=== PATIENT | female | born 1960 | race Hispanic/Latino ===

== ENCOUNTER 2018-02-10 23:17 | Emergency (ER) | payer BC, OTHER ==
[2018-02-10 23:39] VITALS: TEMP 97.5
[2018-02-10] MEDS ORDERED: ORPHENADRINE CITRATE 30 MG/ML AMP IV ONE (23:47)
[2018-02-10] MEDS ORDERED: SODIUM CHLORIDE 0.9% (FLUSH) 10 ML SYG IV PRN (23:48)
--- NOTE | 2018-02-11 00:24 | RAD ---
EXAM DESCRIPTION: Chest,1 View CLINICAL HISTORY: 57 years Female chest pain COMPARISON: 10/20/2010 FINDINGS: The cardiomediastinal silhouette appears unremarkable. No consolidating infiltrates or pleural effusions. No pneumothorax. IMPRESSION: No acute abnormality is identified. Electronically signed by: Nicolasa Plata MD 02/11/2018 12:23 AM CDT
[2018-02-11] MEDS ORDERED: ORPHENADRINE CITRATE 30 MG/ML AMP IM PRN (00:28)
[2018-02-11] MEDS ORDERED: POTASSIUM CHLORIDE 20 MEQ TAB PO ONE (00:40)
[2018-02-11] MEDS ORDERED: SODIUM CHLORIDE 0.9% 1000ML 1,000 ML IVS ONE (00:40)
--- NOTE | 2018-02-11 00:45 | ED.PDOC ---
History of Present Illness - General Chief Complaint: Neck Injury/Pain Stated Complaint: left sided neck pain Time Seen by Provider: 02/10/18 23:47 Source: patient, RN notes reviewed, Vital Signs reviewed Exam Limitations: no limitations - History of Present Illness Timing/Duration: other - 2 pm today Severity: mild Improving Factors: nothing Worsening Factors: movement Associated Symptoms: nausea/vomiting, other - pt reports that the symptoms started after she was sent a picture of a snake which she has a phobia. location is poorly localized but mainly to the base of the neck anteriorly and the left bicept area, palpation makes the symptoms worse, some nausea but no worsening with exercise, deep breathing, no ripping or tearing quaily and the pain has not started to move or progress since it started. no associated numbness or weakness to the arm or lower extremity. pt has not had this in the past. Also pt complains of increased fatigue, has not been sleeping well at night and has had some anxiety concerning her husbands unemployment. no gi symptoms, no prior cardiac issues Allergies/Adverse Reactions: Allergies NO KNOWN ALLERGY Allergy (Unverified 08/13/13 22:27) Home Medications: Ambulatory Orders Cyclobenzaprine HCl [Flexeril] 10 mg PO Q8H PRN #20 tab 02/11/18 Ketorolac Tromethamine [Toradol Tabs] 10 mg PO Q6H PRN #20 tab 02/11/18 Review of Systems - Review of Systems Constitutional: States: no symptoms reported EENTM: States: no symptoms reported. Denies: blurred vision, double vision, ear pain, throat pain, throat swelling, mouth pain, mouth swelling Respiratory: Denies: short of breath, wheezing Cardiology: Denies: chest pain, edema, palpitations, syncope Gastrointestinal/Abdominal: Denies: abdominal pain, constipation, vomiting Musculoskeletal: States: back pain, muscle pain, neck pain Skin: Denies: change in color, dryness Neurological: States: anxiety. Denies: numbness, paresthesia, seizure, tingling , weakness Hematologic/Lymphatic: States: no symptoms reported Past Medical History (General) - Patient Medical History Hx Stroke: No Hx of COPD: No Hx Diabetes: No Hx Gastroesophageal Reflux: Yes Family Medical History - Family History Mother Family History: No Known Physical Exam - Physical Exam General Appearance: Alert, Anxious, No apparent distress Eye Exam: bilateral normal Ears, Nose, Throat: hearing grossly normal, normal ENT inspection, normal pharynx, other - no carotid bruise Neck: full range of motion, supple, normal inspection, other - tenderness to the left SCM and trapezius and deltoid Respiratory: lungs clear, normal breath sounds, no respiratory distress, other - anterior chest wall tenderness Cardiovascular/Chest: normal peripheral pulses, regular rate, rhythm, no edema, no gallop, no JVD, no murmur Gastrointestinal/Abdominal: non tender, soft Back Exam: normal inspection, no CVA tenderness, no vertebral tenderness Extremity: normal range of motion, non-tender, normal inspection, no pedal edema , no calf tenderness, normal capillary refill 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, no motor/sensory deficits, alert Skin Exam: normal color, warm/dry Lymphatic: no adenopathy Progress - Progress Progress: 02/11/18 00:50 02/10/18 23:48 CBC (AUTOMATED) W/AUTO DIFF Stat Sodium Chloride 0.9% (Flush) [Saline Flush Syringe] 3 ml IV PRN PRN 02/10/18 23:49 IV Care:Saline Lock per Protoc QSHIFT Telemetry ONCE EKG STAT Oxygen Delivery Assessment: QSHIFT Oxygen Stat Pulse Oximetry Assessment DAILY 02/11/18 00:28 Orphenadrine Citrate Inj [Norflex Inj] 60 mg IM Q12H PRN 02/11/18 00:40 Sodium Chloride 0.9% 1000ML [Ns 1000 ml] 1,000 ml IVS ONCE 02/11/18 00:48 URINALYSIS Stat 02/11/18 00:50 Ketorolac Tromethamine Inj [Toradol Inj] 30 mg IV ONCE ONE 02/11/18 09:00 Pulse Ox Daily 02/11/18 23:49 EKG STAT Laboratory Results WBC 4.7 K/mm3 (4.8-10.8) L 02/10/18 00:02 RBC 4.31 M/mm3 (4.20-5.40) 02/10/18 00:02 Hgb 12.7 gm/dL (12.0-16.0) 02/10/18 00:02 Hct 37.8 % (36.0-47.0) 02/10/18 00:02 MCV 87.7 fl (81.0-99.0) 02/10/18 00:02 MCH 29.5 pg (27.0-31.0) 02/10/18 00:02 MCHC 33.7 g/dL (33.0-37.0) 02/10/18 00: RDW 12.4 % (11.5-14.5) 02/10/18 00:02 Plt Count 286 K/mm3 (130-400) 02/10/18 00: MPV 7.9 fl (7.40-10.4) 02/10/18 00:02 Absolute Neuts (auto) 2.40 K/uL (1.8-6.8) 02/10/18 00:02 Absolute Lymphs (auto) 1.70 K/uL (1.0-3.4) 02/10/18 00:02 Absolute Monos (auto) 0.40 K/uL (0.2-0.8) 02/10/18 00: Absolute Eos (auto) 0.20 K/uL (0.0-0.4) 02/10/18 00: Absolute Basos (auto) 0.00 K/uL (0.0-0.1) 02/10/18 00:02 Neutrophils % 50.8 % (42.0-78.0) 02/10/18 00: Lymphocytes % 36.6 % (20.0-50.0) 02/10/18 00: Monocytes % 8.2 % (2.0-9.0) 02/10/18 00: Eosinophils % 3.5 % (1.0-5.0) 02/10/18 00: Basophils % 0.9 % (0.0-2.0) 02/10/18 00: PT 10.5 SECONDS (9.4-12.5) 02/10/18 00:02 INR 0.900 02/10/18 00:02 PTT (SP) 28.9 SECONDS (25.1-36.5) 02/10/18 00:02 Sodium 136 mmol/L (135-145) 02/10/18 00:02 Potassium 3.5 mmol/L (3.6-5.0) L 02/10/18 00:02 Chloride 105 mmol/L (101-111) 02/10/18 00:02 Carbon Dioxide 25 mmol/L (21-31) 02/10/18 00:02 Anion Gap 9.5 (12-18) L 02/10/18 00:02 BUN 19 mg/dL (7-18) H 02/10/18 00:02 Creatinine 0.92 mg/dL (0.6-1.3) 02/10/18 00:02 BUN/Creatinine Ratio 20.7 (10-20) H 02/10/18 00:02 Random Glucose 115 mg/dL (70-105) H 02/10/18 00:02 Serum Osmolality 275.1 mOsm/L (275-295) 02/10/18 00:02 Calcium 8.7 mg/dL (8.4-10.2) 02/10/18 00:02 Magnesium 1.7 mg/dL (1.8-2.5) L 02/10/18 00:02 Total Bilirubin 0.3 mg/dL (0.2-1.0) 02/11/18 00:02 Direct Bilirubin < 0.1 mg/dL (0-0.2) 02/11/18 00: Indirect Bilirubin 0.2 mg/dL (0.2-0.8) 02/11/18 00:02 AST 21 IU/L (10-42) 02/11/18 00:02 ALT 23 IU/L (10-60) 02/11/18 00:02 Alkaline Phosphatase 81 IU/L (42-121) 02/11/18 00:02 Creatine Kinase 71 IU/L (26-140) 02/10/18 00:02 CK-MB (CK-2) 1.1 ng/mL (0.0-4.4) 02/10/18 00: CK-MB (CK-2) % Not Reportable 02/10/18 00:02 Troponin I < 0.02 ng/mL (0.01-0.05) 02/10/18 00:02 Serum Total Protein 6.8 gm/dL (6.4-8.2) 02/11/18 00:02 Albumin 3.9 g/dl (3.2-5.5) 02/11/18 00:02 cxr negative EKG Sinus bradycardia with wandering baseline rate 54, pr 156, qrs 78, qtc 396 REPEAT ekg at 0:30 due to baseline showed sinus bradycardia rate 48, pr 156, qrs 80, qtc 405 no angina Pt feeling improved after medications, do not feel patient has atypical presentation for angina; unlikely dissection/ PE; will treat dehydration and hypokalemia and advise close f/u with pcp for further workup. Non toxic and stable currently Departure - Departure Clinical Impression: Cervicalgia, Dehydration, Myalgia, Hypokalemia Fatigue Qualifiers: Fatigue type: unspecified Qualified Code(s): R53.83 - Other fatigue Time of Disposition: 00:55 Disposition: Discharge to Home or Self Care Condition: Excellent Departure Forms: ED Discharge - Pt. Copy, Patient Portal Self Enrollment Instructions: DI for Cervical Muscle Strain, DI for Neck Pain Diet: resume usual diet Activity: increase activity as tolerated Referrals: Gerardo Dooley MD [Primary Care Provider] - 1-5 Days Prescriptions: Cyclobenzaprine HCl [Flexeril] 10 mg PO Q8H PRN #20 tab PRN Reason: Pain Ketorolac Tromethamine [Toradol Tabs] 10 mg PO Q6H PRN #20 tab PRN Reason: Pain Home Medications: Ambulatory Orders Cyclobenzaprine HCl [Flexeril] 10 mg PO Q8H PRN #20 tab 02/11/18 Ketorolac Tromethamine [Toradol Tabs] 10 mg PO Q6H PRN #20 tab 02/11/18
[2018-02-11] MEDS ORDERED: KETOROLAC TROMETHAMINE INJ 30 MG/ML VIAL IV ONE (00:50)
[2018-02-11] MEDS: HYDROcodone 5MG/APAP 325MG 1 EA TAB PO ONE ×2 (02:12→02:23)
[2018-02-11 02:14] VITALS: BP 137/80; O2SAT 97
[2018-02-11] MEDS ORDERED: LORazepam 0.5 MG TAB PO ONE (02:36)
== END 2018-02-11 02:46 | disposition home or self-care (01) ==
LOC: ER 23:17
DX: M54.2 Cervicalgia (principal); E86.0 Dehydration; E87.6 Hypokalemia; M79.1 Myalgia; R53.83 Other fatigue; R11.2 Nausea with vomiting, unspecified; R00.1 Bradycardia, unspecified; K21.9 Gastro-esophageal reflux disease without esophagitis; Z79.899 Other long term (current) drug therapy
CPT/HCPCS: 36415; 71045; 80048; 80076; 81001; 82550; 82553; 84484; 85025; 85610; 85730; 93005; J1885; J2060; J2360; J7030